=== PATIENT | female | born 1960 | race Caucasian/White ===

== ENCOUNTER 2024-10-03 06:21 | Day surgery (SDC) | payer OTHER, SELFPAY | END 2024-10-03 11:49 | disposition home or self-care (01) | LOC: GI 06:21 | PROVIDERS: ATTENDING PHYSICIAN Specialist | DX: Z12.11 Encounter for screening for malignant neoplasm of colon (principal); Z86.0101 Personal history of adenomatous and serrated colon polyps; Z80.0 Family history of malignant neoplasm of digestive organs; K57.30 Diverticulosis of large intestine without perforation or abscess without bleeding | CPT/HCPCS: G0105 ==